=== PATIENT | male | born 1960 | race Caucasian/White ===

== ENCOUNTER 2017-12-20 10:20 | Emergency (ER) | payer BC ==
[~2017-12-20] VITALS: Ht 172.7 cm; Wt 75.8 kg
[~2017-12-20 10:20] MED LIST: ALEVE220 MG PO; CHLORDIAZEPOXID25 MG PO; K-DUR20 MEQ PO; MULTIPLE VITAM1 EAC1 PO; PROSTATE HEALT1 EAC1 PO
[2017-12-20 11:11] LABS: HEMATOCRIT 41.7 % (38.0-50.0); HEMOGLOBIN 14.7 G/DL (12.5-16.6); MCH 31.5 PG (29.0-34.0); MCHC 35.3 G/DL (30.0-36.0); MCV 89.5 FL (86-99); PLATELET COUNT 286 K/uL (156-360); RBC DIS.WIDTH-CV 12.4 % (11.8-14.6); RBC DIS.WIDTH-SD 40.9 % (39-53); RED BLOOD COUNT 4.66 M/uL (4.00-5.50); WHITE BLOOD COUNT 9.3 K/uL (4.1-10.2)
[2017-12-20 11:25] LABS: CHLORIDE 94 mEq/L (99-109); POTASSIUM 3.9 mEq/L (3.7-5.4); SODIUM 132 mEq/L (136-147)
[2017-12-20 11:26] LABS: GLUCOSE 89 mg/dL (70-99)
[2017-12-20 11:30] LABS: CREATININE 0.7 mg/dL (0.6-1.3); GFR ESTIMATE (CALCULATED) > 59 mL/min/ (58.99-99999)
[2017-12-20 11:31] LABS: UREA NITROGEN (BUN) 5 mg/dL (9-23)
[2017-12-20] MEDS ORDERED: AUGMENTIN875 MG PO (12:50)
[2017-12-20] MEDS ORDERED: PERCOCET 5/31 TABLET PO (12:50)
[2017-12-20 13:33] VITALS: BP 155/104
== END 2017-12-20 13:33 | disposition home or self-care (01) ==
LOC: EME 10:20
PROVIDERS: Nurse Practitioner Family
DX: K04.7 Periapical abscess without sinus (principal); M27.2 Inflammatory conditions of jaws; J44.9 Chronic obstructive pulmonary disease, unspecified; F41.9 Anxiety disorder, unspecified; F32.9 Major depressive disorder, single episode, unspecified; F17.200 Nicotine dependence, unspecified, uncomplicated
CPT/HCPCS: 70492; 80048; 85027; 87040; 99281; 99284; J3010; J7030

== ENCOUNTER → 2017-12-22 | Outpatient (CLI) | payer BC ==
[~2017-12-22] MED LIST changes: +AUGMENTIN875 MG PO; +PERCOCET 5/31 TABLET PO
== END | disposition home or self-care (01) ==
LOC: PICC 07:59
DX: M27.2 Inflammatory conditions of jaws (principal)
CPT/HCPCS: 76937